=== PATIENT | female | born 1970 | race Caucasian/White ===

== ENCOUNTER 2017-02-23 20:22 | Emergency (ER) | payer BC ==
[~2017-02-23] VITALS: Ht 162.6 cm; Wt 58.2 kg
[~2017-02-23 20:22] MED LIST: ECHINACEA PURPU80 MG PO; EPIPEN 2-PAK1 MG/ML IM; LINZESS290CAP PO; LYSINE 500500 MG/TAB PO; MULTI VITAMINS1 TAB PO; NO HOME MEDICATIONS; PREDNISONE20 MG PO; PROBIOTIC FORMU1 CAP PO; TURMERIC500 MG PO; ZOFRAN 4MG T4 MG/TAB PO
[2017-02-23 20:24] VITALS: BP 137/85; TEMP 97.9
[2017-02-23 20:57] LABS: COLLECTION METHOD CLEAN CATCH
[2017-02-23] MEDS ORDERED: PROBIOTIC FORMU1 CAP PO (21:01)
[2017-02-23 21:13] LABS: PH 6 (5-8); SQUAMOUS EPITHELIAL None Seen /hpf; URINE APPEARANCE Cloudy; URINE BACTERIA Rare /hpf; URINE BILIRUBIN Negative (NEGATIVE); URINE BLOOD 3+ (NEGATIVE); URINE COLOR Amber; URINE GLUCOSE Negative (NEGATIVE); URINE KETONE Negative (NEGATIVE); URINE LEUKOCYTE ESTERASE 3+ (NEGATIVE); URINE PROTEIN(semi-quant) 1+ (NEGATIVE); URINE RBC >50 /hpf; URINE UROBILINOGEN Negative (NEGATIVE)
[2017-02-23 21:17] LABS: URINE WBC >50 /hpf
[2017-02-23 21:38] VITALS: PULSE 69
== END 2017-02-23 21:43 | disposition home or self-care (01) ==
LOC: COL.ER 20:22
PROVIDERS: Nurse Practitioner Primary Care
DX: N39.0 Urinary tract infection, site not specified (principal); K58.9 Irritable bowel syndrome, unspecified; Z87.42 Personal history of other diseases of the female genital tract; Z90.49 Acquired absence of other specified parts of digestive tract; Z90.89 Acquired absence of other organs; Z98.890 Other specified postprocedural states

== ENCOUNTER → 2017-04-02 | Outpatient (CLI) | payer BC ==
[~2017-04-02] VITALS: Ht 162.6 cm; Wt 59.1 kg
[~2017-04-02] MED LIST changes: +CIPRO 500MG TA500 MG PO
[2017-04-02 09:36] VITALS: BP 118/78; PULSE 54
== END ==
LOC: COL.RAD 09:00
DX: M54.32 Sciatica, left side (principal)
CPT/HCPCS: J3301

== ENCOUNTER 2017-10-09 14:15 | Emergency (ER) | payer BC ==
[~2017-10-09] VITALS: Ht 162.6 cm; Wt 59.1 kg
[2017-10-09 14:19] VITALS: TEMP 98.1
[2017-10-09] MEDS ORDERED: AMOXICILLIN 50500 MG PO (14:23)
[2017-10-09] MEDS ORDERED: EPIPEN 2-PAK1 MG/ML IM (16:22)
[2017-10-09 16:39] VITALS: BP 94/63; PULSE 72
== END 2017-10-09 17:13 | disposition home or self-care (01) ==
LOC: COL.ER 14:15
DX: R22.0 Localized swelling, mass and lump, head (principal); T78.1XXA Other adverse food reactions, not elsewhere classified, initial encounter
CPT/HCPCS: J0171; J7512

== ENCOUNTER 2017-11-18 15:34 | Emergency (ER) | payer BC ==
[~2017-11-18] VITALS: Ht 162.6 cm; Wt 59.1 kg
[~2017-11-18 15:34] MED LIST changes: +AMOXICILLIN 50500 MG PO
[2017-11-18 15:36] VITALS: TEMP 97.9
[2017-11-18 19:23] VITALS: BP 112/78; PULSE 74
== END 2017-11-18 19:23 | disposition home or self-care (01) ==
LOC: COL.ER 15:34
DX: T78.3XXA Angioneurotic edema, initial encounter (principal); K58.9 Irritable bowel syndrome, unspecified
CPT/HCPCS: J0171; J2930

== ENCOUNTER 2017-11-24 05:29 | Emergency (ER) | payer BC ==
[~2017-11-24] VITALS: Ht 162.6 cm; Wt 60.5 kg
[2017-11-24 05:52] VITALS: TEMP 97.3
[2017-11-24] MEDS ORDERED: BENADRYL25 M2 PO (07:05)
[2017-11-24] MEDS ORDERED: PREDNISONE20 MG PO (07:05)
[2017-11-24] MEDS ORDERED: PEPCID 20MG TAB20 MG PO (07:05)
[2017-11-24 07:35] VITALS: BP 109/70; PULSE 82
== END 2017-11-24 07:42 | disposition home or self-care (01) ==
LOC: COL.ER 05:29
DX: T78.3XXA Angioneurotic edema, initial encounter (principal)
CPT/HCPCS: J0171; J1200; J2930; J7030

== ENCOUNTER 2017-11-27 09:56 | Emergency (ER) | payer BC ==
[~2017-11-27] VITALS: Ht 162.6 cm; Wt 59.1 kg
[~2017-11-27 09:56] MED LIST changes: +BENADRYL25 M2 PO; +PEPCID 20MG TAB20 MG PO
[2017-11-27 10:08] VITALS: TEMP 97.9
[2017-11-27 11:30] LABS: BASO % 0.6 % (0.0-2.0); EOS # 0.4 (0.0-0.7); EOS % 5.5 % (0-4.0); GRAN # 3.6 (1.4-6.5); GRAN % 50.8 % (42.2-75.2); LYMPH # 2.6 (1.2-3.4); LYMPH % 36.7 % (20.0-51.0); MEAN CELL VOLUME 98 fl (80.0-100.0); MEAN CORPUSCULAR HEMOGLOBIN 33 pg (27.0-31.0); MEAN CORPUSCULAR HGB CONC 33 g/dl (33.0-37.0); MONO # 0.4 (0.1-0.6); MONO % 6.1 % (1.7-9.3); PLATELET COUNT 228 K/mm3 (130-400); RED BLOOD COUNT 4.29 M/mm3 (4.10-5.30); REDCELL DISTRIBUTION WIDTH-CV 12.8 % (11.5-14.5)
[2017-11-27 11:38] LABS: ALBUMIN 4.5 gm/dL (3.5-5.0); BILIRUBIN,TOTAL 0.3 mg/dL (0.0-1.0); CALCIUM 9.3 mg/dL (8.4-10.2); CREATININE, serum 0.87 mg/dL (0.52-1.25); POTASSIUM 4.2 mmol/L (3.4-5.0); TOTAL PROTEIN 7.4 gm/dL (6.4-8.2)
[2017-11-27 11:50] VITALS: BP 128/94; PULSE 58
[2017-11-27] MEDS ORDERED: PREDNISONE20 MG PO (12:05)
[2017-11-27] MEDS ORDERED: ZOVIRAX400 MG PO (12:05)
[2017-11-27] MEDS ORDERED: TEARS-ARTIFICIA15 ML OP (12:05)
== END 2017-11-27 12:14 | disposition home or self-care (01) ==
LOC: COL.ER 09:56
PROVIDERS: Emergency Medicine
DX: G51.0 Bell's palsy (principal)

== ENCOUNTER → 2018-04-12 | Outpatient (CLI) | payer BC ==
[~2018-04-12] MED LIST changes: +TEARS-ARTIFICIA15 ML OP; +ZOVIRAX400 MG PO
== END ==
LOC: MC.RAD 09:53
DX: Z12.31 Encounter for screening mammogram for malignant neoplasm of breast (principal)

== ENCOUNTER 2018-04-28 10:57 | Day surgery (SDC) | payer BC ==
[~2018-04-28] VITALS: Ht 162.6 cm; Wt 60.8 kg
[2018-04-28 11:59] VITALS: BP 121/76; PULSE 67; TEMP 98.2
[2018-04-28] MEDS ORDERED: FIRAZYR SQ (12:03)
[2018-04-28] MEDS ORDERED: MULTIPLE VITAMI1 CAP PO (12:04)
[2018-04-28 12:36] VITALS: BP 101/66; PULSE 69
--- NOTE | 2018-04-28 12:36 | NUR ---
Patient returns to room 8 per cart from surgery and is awake and alert. Left arm elevated on pillow and luda wrap dressing clean and dry. IV fluids infusing and siderails up x2. Call light in reach. Temp 98.3 and room air sats 95%. Mother in room. Taking sips of water.
[2018-04-28 12:51] VITALS: BP 109/56; PULSE 70
--- NOTE | 2018-04-28 12:51 | NUR ---
Eating chex mix brought from home. Tolerated water. Iker wrap dressing clean and dry on the left hand. IV fluids infusing.
[2018-04-28] MEDS ORDERED: TYLENOL W/COD1 UDTAB PO (12:59)
[2018-04-28 13:06] VITALS: BP 101/61; PULSE 61
--- NOTE | 2018-04-28 13:06 | NUR ---
Patient states that she is ready to go home and IV discontinued. Patient dresses self and denies pain or nausea. States that her left hand is numb. Fingers warm to touch and able to wiggle these freely.
--- NOTE | 2018-04-28 13:10 | NUR ---
Dismissal instructions given and patient verbalizes understanding of these. Provided script for Tylenol #3. Patient dismissed to home per private vehicle driven by mother with dismissal instructions in hand. Taken to car by RN.
== END 2018-04-28 13:10 | disposition home or self-care (01) ==
LOC: SDCO 10:57
DX: G56.02 Carpal tunnel syndrome, left upper limb (principal); K58.9 Irritable bowel syndrome, unspecified
CPT/HCPCS: J0690; J1100; J1885; J2250; J2405; J2704; J3010; J7120

== ENCOUNTER 2019-05-18 13:04 | Day surgery (SDC) | payer BC ==
[~2019-05-18] VITALS: Ht 162.6 cm; Wt 57.3 kg
[~2019-05-18 13:04] MED LIST changes: +FIRAZYR SQ; +MULTIPLE VITAMI1 CAP PO; +TYLENOL W/COD1 UDTAB PO
[2019-05-18] MEDS ORDERED: BENADRYL25 M2 PO (13:32)
[2019-05-18] MEDS ORDERED: ZITHROMAX500 M2 PO (13:33)
[2019-05-18] MEDS ORDERED: RIFADIN300 MG PO (13:34)
[2019-05-18] MEDS ORDERED: ETHAMBUTOL HYD400 MG PO (13:36)
[2019-05-18] MEDS ORDERED: BREO ELLIPTA 21 EACH IH (13:37)
[2019-05-18] MEDS ORDERED: B-12 500 MCG PO (13:38)
[2019-05-18] MEDS ORDERED: TAKHZYRO300 MG/2 M SQ (13:38)
[2019-05-18] MEDS ORDERED: ECHINACEA400 MG PO (13:39)
[2019-05-18] MEDS ORDERED: PROBIOTIC FORMU1 CAP PO (13:42)
[2019-05-18] MEDS ORDERED: EPIPEN 2-PAK1 MG/ML IM (13:59)
[2019-05-18 14:26] VITALS: BP 120/88; PULSE 70; TEMP 98.8
[2019-05-18 15:20] VITALS: BP 104/82; PULSE 75; TEMP 97.8
--- NOTE | 2019-05-18 15:20 | NUR ---
1520 FOLLOWING PROCEDURE PATIENT TO RECOVERY BAY 4 VIA CART. SITS TO SIDE OF BED AND AMBULATES TO CHAIR WITH ASSIST. VITAL SIGNS TAKEN, WNL. DR ESTES AT BEDSIDE SPEAKS WITH FAMILY. PATIENT DENIES NAUSEA, OR DIZZINESS. PATIENT DROWSY. OFFERED DRINK AND SNACK. PATIENT GIVEN JUICE AND PUDDING PER REQUEST. RESTING COMFORTABLY IN CHAIR. PATIENT REPORT LEFT EYE IRRITATION. EYE IS RED. SALINE GIVEN FOR EYE DROPS.
[2019-05-18 15:30] VITALS: BP 97/73; PULSE 69
[2019-05-18 15:45] VITALS: BP 106/78; PULSE 62
--- NOTE | 2019-05-18 15:45 | NUR ---
1549 PATIENT RESTING COMFORTABLY IN CHAIR. SIPPING ON JUICE. NO NAUSEA. SOME DROWSINESS. ASSIST PATIENT UP TO BATHROOM. AMBULATES WITH ASSIST. DENIES LIGHTHEADEDNESS.
[2019-05-18 16:00] VITALS: BP 102/74; PULSE 66
--- NOTE | 2019-05-18 16:00 | NUR ---
1600 VITAL SIGNS STABLE. PATIENT READY TO GO HOME. DISMISSAL INSTRUCTIONS GIVEN AND EXPLAINED. DENIES QUESTIONS. INSTRUCTIONS SIGNED AND VERBALIZES UNDERSTANDING. 1615 IV TO RIGHT ARM DISCONTINUED. PRESSURE TO SITE AND SECURED WITH COTTON BALL AND COBAN. 1625 PT DRESSED AND ESCORTED WITH [employer]IST VIA WHEELCHAIR BY Juliette HENDERSON RN TO CAR. DISMISSED TO HOME.
== END 2019-05-18 16:25 | disposition home or self-care (01) ==
LOC: SDCO 13:04
DX: Z12.11 Encounter for screening for malignant neoplasm of colon (principal); D12.0 Benign neoplasm of cecum; M19.041 Primary osteoarthritis, right hand; M19.042 Primary osteoarthritis, left hand; Z80.0 Family history of malignant neoplasm of digestive organs; Z88.5 Allergy status to narcotic agent; Z88.8 Allergy status to other drugs, medicaments and biological substances; K58.1 Irritable bowel syndrome with constipation; Z83.71 Family history of colonic polyps; Z90.49 Acquired absence of other specified parts of digestive tract; Z91.013 Allergy to seafood
CPT/HCPCS: J2704; J7120

== ENCOUNTER → 2019-06-01 | Outpatient (CLI) | payer BC ==
[~2019-06-01] MED LIST changes: +B-12 500 MCG PO; +BREO ELLIPTA 21 EACH IH; +ECHINACEA400 MG PO; +ETHAMBUTOL HYD400 MG PO; +RIFADIN300 MG PO; +TAKHZYRO300 MG/2 M SQ; +ZITHROMAX500 M2 PO
== END ==
LOC: MC.RAD 17:00
DX: Z12.31 Encounter for screening mammogram for malignant neoplasm of breast (principal)

== ENCOUNTER → 2019-08-13 | Outpatient (CLI) | payer BC | LOC: ZCOL.LAB 17:04 | DX: D89.9 Disorder involving the immune mechanism, unspecified (principal); A31.9 Mycobacterial infection, unspecified; R93.89 Abnormal findings on diagnostic imaging of other specified body structures ==

== ENCOUNTER → 2019-09-03 | Outpatient (CLI) | payer BC | LOC: COL.RAD 14:50 | DX: A31.9 Mycobacterial infection, unspecified (principal); D89.9 Disorder involving the immune mechanism, unspecified; R93.89 Abnormal findings on diagnostic imaging of other specified body structures; I77.810 Thoracic aortic ectasia | CPT/HCPCS: Q9967 ==

== ENCOUNTER → 2019-11-26 | Outpatient (CLI) | payer BC, OTHER | LOC: ZCOL.LAB 09:48 | DX: A31.9 Mycobacterial infection, unspecified (principal); T78.3XXA Angioneurotic edema, initial encounter; D89.9 Disorder involving the immune mechanism, unspecified; R93.89 Abnormal findings on diagnostic imaging of other specified body structures ==

== ENCOUNTER 2020-05-25 14:27 | Outpatient (CLI) | payer BC ==
[~2020-05-25] VITALS: Ht 162.6 cm; Wt 59.0 kg
[2020-05-25] VITALS (7 sets, daily range): BP systolic 98–110; BP diastolic 70–75; PULSE 58–68; TEMP 98.1–98.2
[2020-05-25] MEDS ORDERED: MUCINEX DM 60 M1 TER PO (15:07)
[2020-05-25] MEDS ORDERED: PROAIR HFA0.09 MG/AC IH (15:08)
[2020-05-25] MEDS ORDERED: TYLENOL 500MG500 MG PO (15:09)
--- NOTE | 2020-05-25 17:00 | NUR ---
Pt tolerated infusion well, she did not exhibit any signs or sx of adverse or allergic reaction. pt is ambulatory with steady gait to exit.
== END 2020-05-25 17:40 | disposition home or self-care (01) ==
LOC: EUO 14:27
DX: U07.1 COVID-19 (principal); Q24.9 Congenital malformation of heart, unspecified; J96.10 Chronic respiratory failure, unspecified whether with hypoxia or hypercapnia
CPT/HCPCS: J7050

== ENCOUNTER → 2020-08-11 | Outpatient (CLI) | payer BC ==
[~2020-08-11] MED LIST changes: +MUCINEX DM 60 M1 TER PO; +PROAIR HFA0.09 MG/AC IH; +TYLENOL 500MG500 MG PO
== END ==
LOC: MC.RAD 07-28 16:00
DX: Z12.31 Encounter for screening mammogram for malignant neoplasm of breast (principal)

== ENCOUNTER → 2021-09-05 | Outpatient (CLI) | payer BC | LOC: MC.RAD 15:52 | DX: Z12.31 Encounter for screening mammogram for malignant neoplasm of breast (principal) ==

== ENCOUNTER → 2021-09-28 | Outpatient (CLI) | payer BC ==
[2021-09-28 09:25] LABS: BASO % 0.5 % (0.0-2.0); EOS # 0.1 K/mm3 (0.0-0.7); EOS % 1.6 % (0.0-4.0); GRAN # 1.7 K/mm3 (1.4-6.5); GRAN % 46.3 % (42.2-75.2); HEMATOCRIT 41.9 % (37.0-47.0); HEMOGLOBIN 14.3 g/dl (12.5-16.0); LYMPH # 1.7 K/mm3 (1.2-3.4); LYMPH % 45.3 % (20.0-51.0); MEAN CELL VOLUME 96 fl (80.0-100.0); MEAN CORPUSCULAR HEMOGLOBIN 33 pg (27-31); MEAN CORPUSCULAR HGB CONC 34 g/dl (33.0-37.0); MONO # 0.2 K/mm3 (0.1-0.6); PLATELET COUNT 192 K/mm3 (130-400); RED BLOOD COUNT 4.35 M/mm3 (4.10-5.30); REDCELL DISTRIBUTION WIDTH-CV 12.6 % (11.5-14.5)
[2021-09-28 09:58] LABS: ERYTHROCYTE SEDIMENTATION RATE 1 mm/hr (0-20)
[2021-09-29 00:38] LABS: COMPLEMENT-C4 17 mg/dL (15-57)
[2021-10-02 10:08] LABS: COMPLEMENT C1 ESTERASE ANTIGEN 25 mg/dL (19 - 37)
== END ==
LOC: COL.LAB 08:39
PROVIDERS: Allergy & Immunology
DX: C94.80 Other specified leukemias not having achieved remission (principal)

== ENCOUNTER 2022-07-06 10:08 | Day surgery (SDC) | payer BC ==
[~2022-07-06] VITALS: Ht 162.6 cm; Wt 59.4 kg
[2022-07-06 11:04] VITALS: BP 98/73; PULSE 60; TEMP 97.8
[2022-07-06] MEDS ORDERED: ZITHROMAX500 M2 PO (11:33)
[2022-07-06] MEDS ORDERED: ETHAMBUTOL HYD400 MG PO (11:33)
[2022-07-06] MEDS ORDERED: RIFADIN300 MG PO (11:34)
[2022-07-06] MEDS ORDERED: PROBIOTIC BLEN1 EACH PO (11:34)
[2022-07-06 12:23] VITALS: BP 95/72; PULSE 60; TEMP 97.8
[2022-07-06 12:38] VITALS: BP 104/67; PULSE 60
[2022-07-06 12:53] VITALS: BP 109/79; PULSE 660
--- NOTE | 2022-07-06 13:10 | NUR ---
1223 RETURNS TO ROOM 4 PER CART. AWAKE, ALERT. RESP UNLABORED. AMBULATES TO RECLINER WITH STANDBY ASSIST. DENIES NAUSEA OR ABD PAIN, VITAL SIGNS OBTAINED. CALL LIGHT AT SIDE. 1235 TOLERATES PO JUICE AND MUFFIN WITHOUT NAUSEA. 1249 DR. ESTES HERE TO VISIT WITH PATIENT 1255 DISCHARGE INSTRUCTIONS REVIEWED. PATIENT VERBALIZES UNDERSTANDING. COPY PROVIDED IN DISCHARGE FOLDER 1300 DRESSES SELF
== END 2022-07-06 13:10 | disposition home or self-care (01) ==
LOC: SDCO 10:08
DX: Z12.11 Encounter for screening for malignant neoplasm of colon (principal); D12.2 Benign neoplasm of ascending colon; K62.1 Rectal polyp; K64.1 Second degree hemorrhoids; Z80.0 Family history of malignant neoplasm of digestive organs
CPT/HCPCS: J2704; J7120

== ENCOUNTER → 2024-02-14 | Outpatient (CLI) | payer BC ==
[~2024-02-14] MED LIST changes: +PROBIOTIC BLEN1 EACH PO
== END ==
LOC: MC.RAD 14:37
DX: Z12.31 Encounter for screening mammogram for malignant neoplasm of breast (principal)